=== PATIENT | male | born 1960 | race Caucasian/White ===

== ENCOUNTER 2019-04-24 08:22 | Emergency (ER) | payer MEDICARE ==
[~2019-04-24] VITALS: Ht 177.8 cm; Wt 88.0 kg
[2019-04-24] MEDS ORDERED: OXYcodone/APAP 5/325MG TABLET ONE (08:56)
[2019-04-24] MEDS ORDERED: OXYcodone/APAP 5/325MG TABLET PO ONE (09:00)
--- NOTE | 2019-04-24 09:05 | NUR ---
PT LAYING ON GURNEY AWAKE WITH C/O PAIN, MEDICATED PER EMAR, RESPONDS APPROP TO STAFF, COMFORT MEASURES PROVIDED, CALL LIGHT WITHIN REACH.
[2019-04-24 09:07] LABS: BASOPHILS # (AUTO) 0.03 x10^3/uL (0-0.1); BASOPHILS % (AUTO) 1 % (0-1); EOSINOPHILS # (AUTO) 0.01 x10^3/uL (0-0.4); EOSINOPHILS % (AUTO) 0 % (1-7); LYMPHOCYTES # (AUTO) 0.89 x10^3/uL (1-3.4); LYMPHOCYTES % (AUTO) 25 % (22-44); MD NO; MEAN CORPUSCULAR HEMOGLOBIN 30.5 pg (27.5-34.5); MEAN CORPUSCULAR HGB CONC 33.5 g/dL (33.2-36.2); MEAN PLATELET VOLUME 7.8 fL (7.4-10.4); MONOCYTES # (AUTO) 0.54 x10^3/uL (0.2-0.8); MONOCYTES % (AUTO) 15 % (2-9); NEUTROPHILS % (AUTO) 59 % (42-75); PLATELET COUNT 125 x10^3/uL (130-400); RED BLOOD COUNT 5.06 x10^6/uL (4.38-5.82)
[2019-04-24 09:19] LABS: ALANINE AMINOTRANSFERASE 32 U/L (12-78); ALBUMIN 3.6 g/dL (3.4-5.0); ANION GAP 8 mmol/L (5-15); CALCIUM 7.9 mg/dL (8.5-10.1); CHLORIDE 104 mmol/L (98-107); CREATININE 1.02 mg/dL (0.7-1.3)
[2019-04-24 09:22] LABS: ALKALINE PHOSPHATASE 56 U/L (45-117); BILIRUBIN,TOTAL 0.3 mg/dL (0.2-1.0); TOTAL PROTEIN 6.9 g/dL (6.4-8.2)
[2019-04-24] MEDS ORDERED: OMNIPAQUE 350 MG/ML, 100ML BOTTLE ONE (09:53)
[2019-04-24 10:04] VITALS: BP 122/81
--- NOTE | 2019-04-24 10:04 | NUR ---
PT CONTINUES LAYING ON GURNEY AWAKE & MORE COMFORTABLE, NAD AT REST, RESPONDS APPROP TO STAFF, COMFORT MEASURES PROVIDED, CALL LIGHT WITHIN REACH.
[2019-04-24 10:13] LABS: MICROSCOPIC NOT IND
[2019-04-24 10:16] LABS: CULTURE INDICATED? NO
--- NOTE | 2019-04-24 10:45 | NUR ---
Patient given discharge instructions and Rx, they have confirmed that they understand the instructions. Patient ambulatory with steady gait.
== END 2019-04-24 10:46 | disposition home or self-care (01) ==
LOC: ED 10:06
DX: S22.31XA Fracture of one rib, right side, initial encounter for closed fracture (principal); S20.211A Contusion of right front wall of thorax, initial encounter; W01.0XXA Fall on same level from slipping, tripping and stumbling without subsequent striking against object, initial encounter; Y93.89 Activity, other specified; Y92.410 Unspecified street and highway as the place of occurrence of the external cause; Y99.8 Other external cause status
CPT/HCPCS: 36415; 71260; 74177; 80053; 81003; 85025; 99284; Q9967

== ENCOUNTER 2019-07-20 10:41 | Emergency (ER) | payer MEDICARE ==
[~2019-07-20] VITALS: Ht 177.8 cm; Wt 86.0 kg
[2019-07-20 10:45] VITALS: BP 132/96
--- NOTE | 2019-07-20 10:56 | NUR ---
PT HERE WITH C/O RIGHT HIP PAIN FOR 2 WEEKS, WORSE TODAY. PT DENIES INJURY.
[2019-07-20] MEDS ORDERED: HYDROcodone/APAP 5/325 TABLET PO ONE (11:00)
[2019-07-20] MEDS ORDERED: HYDROcodone/APAP 5/325 TABLET ONE (11:04)
--- NOTE | 2019-07-20 11:05 | NUR ---
PT MEDICATED PER ORDER.
--- NOTE | 2019-07-20 12:22 | NUR ---
Patient/Caregiver given discharge instructions and they have confirmed that they understand the instructions. Patient ambulatory with steady gait.
== END 2019-07-20 12:24 | disposition home or self-care (01) ==
LOC: ED 12:19
DX: M51.36 Other intervertebral disc degeneration, lumbar region (principal)
CPT/HCPCS: 72110; 72220; 99283

== ENCOUNTER 2020-10-02 16:54 | Emergency (ER) | payer MEDICARE ==
[~2020-10-02] VITALS: Ht 175.3 cm; Wt 86.6 kg
[2020-10-02 17:08] VITALS: BP 127/83
--- NOTE | 2020-10-02 18:28 | NUR ---
ERPA AT BEDSIDE FOR ASSESSMENT.
--- NOTE | 2020-10-02 18:44 | NUR ---
PT GOING TO XRAY
--- NOTE | 2020-10-02 19:33 | NUR ---
BREAK RN: PT ON CELLPHONE IN ROOM. NO ACUTE DISTRESS NOTED. WILL CONTINUE TO MONITOR WHILE PRIMARY RN IS ON BREAK
--- NOTE | 2020-10-02 19:46 | NUR ---
BREAK RN: MARY HAS UPDATED PATIENT.
== END 2020-10-02 19:51 | disposition left against medical advice (07) ==
LOC: ED 19:48
DX: S73.112A Iliofemoral ligament sprain of left hip, initial encounter (principal); R51.9 Headache, unspecified; Y04.8XXA Assault by other bodily force, initial encounter; Y93.89 Activity, other specified; Y92.410 Unspecified street and highway as the place of occurrence of the external cause; Y99.8 Other external cause status
CPT/HCPCS: 72110; 99284

== ENCOUNTER 2021-01-08 04:50 | Emergency (ER) | payer MEDICARE ==
[~2021-01-08] VITALS: Ht 175.3 cm; Wt 85.3 kg
--- NOTE | 2021-01-08 05:03 | NUR ---
pt c/o of left hip pain starting approx 2 weeks ago, still weight baring but reports pain and stiffness. pt has taken otc ibuprofen for pain. pt changes into gown, Patient is resting comfortably in bed. Bed in lowest, rails engaged, call light on lap. Vital Signs within normal limits. WCTM.
[2021-01-08] MEDS ORDERED: KETOROLAC 30 MG/1 ML IM ONE (05:30)
[2021-01-08] MEDS ORDERED: DIAZEPAM 5 MG TABLET PO/NG ONE (05:30)
[2021-01-08] MEDS ORDERED: DIAZEPAM 5 MG TABLET ONE (05:31)
[2021-01-08] MEDS ORDERED: KETOROLAC 30 MG/1 ML ONE (05:31)
--- NOTE | 2021-01-08 05:38 | NUR ---
pt medicated per mar, nad, no change in condition, wctm.
[2021-01-08 06:44] VITALS: BP 103/71
--- NOTE | 2021-01-08 06:45 | NUR ---
Patient given discharge instructions and they have confirmed that they understand the instructions. Patient ambulatory with steady gait. NAD, all questions answered appropriately, denies additional needs at this time. No personal belongings left in room after discharge.
== END 2021-01-08 06:46 | disposition home or self-care (01) ==
LOC: ED 06:00
DX: M54.5 Low back pain (principal); M25.552 Pain in left hip; E78.5 Hyperlipidemia, unspecified; G89.29 Other chronic pain
CPT/HCPCS: 96372; 99283; J1885